=== PATIENT | male | born 1990 | race Caucasian/White ===

== ENCOUNTER 2021-04-26 17:17 | Emergency (ER) | payer MEDICAID, SELFPAY ==
[2021-04-26 17:19] VITALS: BP 122/80; PULSE 94; RESP 18; TEMP 36.7; O2SAT 96; BMI 31.3
--- NOTE | 2021-04-26 17:37 | XR_ITS ---
PROCEDURE INFORMATION: Exam: XR Right Tibia and Fibula Exam date and time: 04/26/2021 5:37 PM Age: 31 years old Clinical indication: Injury or trauma; Fall; Blunt trauma; Lower leg; Right TECHNIQUE: Imaging protocol: XR Right tibia and fibula. Views: 2 views. COMPARISON: No relevant prior studies available. FINDINGS: Bones/joints: Normal. Soft tissues: Normal. IMPRESSION: No acute findings.
--- NOTE | 2021-04-26 17:37 | XR_ITS ---
PROCEDURE INFORMATION: Exam: XR Right Ankle Exam date and time: 04/26/2021 5:37 PM Age: 31 years old Clinical indication: Injury or trauma; Fall; Blunt trauma; Ankle; Right TECHNIQUE: Imaging protocol: XR Right ankle. Views: 3 or more views. COMPARISON: No relevant prior studies available. FINDINGS: Bones/joints: A linear lucency runs obliquely through the distal right fibula. This is concerning for a nondisplaced fracture. The ankle mortise is well aligned. Soft tissues: Mild soft tissue swelling. IMPRESSION: Concern for nondisplaced distal right fibular fracture
--- NOTE | 2021-04-26 17:40 | PC.NURSE ---
Notified rad of xray
--- NOTE | 2021-04-26 17:42 | HMH.EDGENADL ---
ED Disposition Clinical Impression: Right leg injury Qualifiers: Encounter type: initial encounter Qualified Code(s): S89.91XA - Unspecified injury of right lower leg, initial encounter Disposition: Xfer Short-Term Hosp Condition on Discharge: Fair Additional Instructions: Go straight to [facility] now. Do not eat or drink. Referrals: Provider,Referral, [Primary Care Provider] - - Critical Care Critical Care Time: No Attestation: On 04/26/21, the high probability of a clinically significant, sudden or life threatening deterioration of the following system(s) required my full and direct attention, intervention and personal management. The time I documented below is in addition to time spent performing reported procedures but includes the following listed in this critical care notation. Medical Decision Making - Cooper Inquiry Pt receiving controlled substance: No Vital Signs: 04/26/21 17:19 Temperature 98.1 F Temperature Source Oral Pulse Rate [Right Radial] 94 H Respiratory Rate 18 Blood Pressure [Right Arm] 122/80 Blood Pressure Mean [Right Arm] 94 Blood Pressure Source [Right Arm] Automatic Cuff Blood Pressure Position [Right Arm] Sitting 02 Sat by Pulse Oximetry 96 Oxygen Delivery Method Room Air Orders (Tests/Meds): ORDERS Category Date Time Status XR ankle RT min 3V Stat Exams 04/26/21 17:37 Taken XR tibia fibula RT 2V Stat Exams 04/26/21 17:37 Taken - Physician Consults Physician Consulted: Vero KIRKLAND Reason -: Orthopedic Eval/Care Comment/Response: Send straight to [facility] ER for evaluation. Patient is told to be n.p.o. He insists on being transported by his girlfriend. Medical Decision Narrative: 5:44 PM: Patient has a prior history of substance abuse and at this time is declining pain medication until x-rays. I am concerned about the possibility of compartment syndrome in his lateral compartment of his calf. There is no orthopedic coverage at this facility this weekend. Discussed this with patient. He would like for his girlfriend to take him to [facility]. Call placed to [facility] transfer center. General Adult HPI - General Chief complaint: Extremity Injury, Lower Stated complaint: AO 05/04 @1530 fell R leg Time Seen by Provider: 04/26/21 17:42 Mode of Arrival: Wheelchair Limitations: No Limitations Description of Symptoms (Recalled from ER Triage Doc. by RN): Pt states that while at work, he stepped backward in the trailer they were loading and fell off the edge, landing all his weight on his rt foot. Pt states that once he went to take a step, his leg gave out. Pt c/o pain in outer calf of rt leg. Denies pain in foot and/or ankle. Positive pedal pulses palpated. Cap refill <3 seconds - History of Present Illness HPI narrative: Patient states that while cutting limbs he went to step back onto a trailer and there was no trailer underneath him, causing him to fall about 15 feet. He says his only injury is to his right lower extremity. Pain at rest is 7/10. He landed with all of his weight on the bottom of his right foot. He complains of pain in his lower leg laterally. States knee and ankle do not hurt. He says when he tried to stand and walk he could not do so. Denies numbness or weakness. Denies any injury to head, neck, chest, back, abdomen, or upper extremities. - Related Data Allergies Allergy/AdvReac Type Severity Reaction Status Date / Time No Known Allergies Allergy Verified 04/26/21 17:36 [facility] History - Hepatitis A Screen Drug use history?: Yes High risk sexual behaviors?: No History of sexually transmitted infection?: No Currently employed?: No Childcare worker?: No Do you have indoor plumbing?: Yes Do you have electricity?: Yes Attestation statement:: This patient has been screened for Hepatitis A risk factors. I have reviewed the patie
--- NOTE | 2021-04-26 17:56 | PC.NURSE ---
Pt to rad
--- NOTE | 2021-04-26 18:36 | PC.NURSE ---
[facility] on the phone.
--- NOTE | 2021-04-26 18:42 | PC.NURSE ---
Dr. Singh on the phone from [facility] with ER
[2021-04-26 19:01] VITALS: BP 123/74; PULSE 78; RESP 16; TEMP 36.6; O2SAT 98
--- NOTE | 2021-04-26 19:07 | PC.NURSE ---
report called to [facility]
== END 2021-04-26 19:07 | disposition short-term general hospital (02) ==
PROVIDERS: Emergency Provider Emergency Medicine
DX: S89.91XA Unspecified injury of right lower leg, initial encounter (principal); W17.89XA Other fall from one level to another, initial encounter
CPT/HCPCS: 73590; 73610; 99283

== ENCOUNTER → 2021-08-29 13:32 | Outpatient (CLI) | payer MEDICAID, SELFPAY | PROVIDERS: Visit Provider Nurse Practitioner | DX: Z20.822 Contact with and (suspected) exposure to COVID-19 (principal) | CPT/HCPCS: C9803; U0003; U0005 ==